=== PATIENT | male | born 1990 | race Caucasian/White ===

== ENCOUNTER 2016-08-04 05:23 | Emergency (ER) | payer OTHER, SELFPAY ==
[2016-08-04] MEDS ORDERED: NORCO, ANEXSIA 5/325MG TABLET (HYDROcodone/ACETAMINOPHEN) As Ordered ONE (08:09)
[2016-08-04] MEDS ORDERED: cefTRIAXone SOD 250 MG VIAL (J0696) As Ordered ONE (08:09)
--- NOTE | 2016-08-04 08:09 | REP ---
Clinical: Left-sided scrotal and testicular pain. Technique: Real time joyce scale and color Doppler evaluation of the scrotum and testicles using curved array and linear high frequency transducer. Findings: The left epididymal body and tail appears mildly enlarged, heterogeneous, and hyperemic consistent with acute epididymitis. Small associated left hydrocele is identified and likely reactive. The right epididymis and bilateral testicles are normal in contour, size, echogenicity, and vascularity. Incidental note is made of a 8 mm left epididymal head cyst. There is no evidence for testicular mass lesion, torsion, or orchitis. No inguinal hernias are identified. No varicoceles noted. Right testicle measures 5.2 x 3.1 x 3.2 cm. Left testicle measures 5.4 x 3.0 x 3.1 cm. Impression: Acute left epididymitis. Signed by Dusty Macario MD 08/04/2016 08:01 A
[2016-08-04] MEDS ORDERED: DOXYCYCLINE HYCLATE 100 MG TAB As Ordered ONE (08:10)
[2016-08-04] MEDS ORDERED: LIDOCAINE 1% MDV 20ML VIAL As Ordered ONE (08:10)
--- NOTE | 2016-08-04 08:42 | EDDOCDS ---
Nurse's Notes [facility] Name: Da Yu Age: 26 yrs Sex: Male : 1990 Arrival Date: 08/04/2016 Time: 05:23 Bed 9 Private MD: Diagnosis: Epididymitis-left Presentation: 08/04 05:27 Presenting complaint: Patient states: pain, swelling in left testicle for about a week. ko2 Suicide/Homicide risk assessment- the patient denies having any suicidal and/or homicidal ideations and does not present with any other emotional, behavioral or mental health complaints. Status: Patient is not a appliance service technician or dependent. Transition of care: patient was not received from another setting of care. 05:27 Acuity: ZULMA Level 3 ko2 05:27 Method Of Arrival: Walkin/Carried/Asstd ko2 05:32 Adult Sepsis Screening: The patient does not have new or worsening altered mentation. ko2 Patient's respiratory rate is less than 22. Systolic blood pressure is greater than 100. Patient has a qSOFA score of 0- Negative Sepsis Screen. Triage Assessment: 05:29 General: Appears in no apparent distress. Pain: Location: groin Pain currently is 5 out ko2 of 10 on a pain scale. HIV screening NA for this visit Offered previously. The patient is triaged at the bedside. See Assessment in Nurses Notes section of ED record. Neurological: Level of Consciousness is awake, alert. Respiratory: Airway is patent Respiratory effort is even, unlabored. 05:32 GI: Reports swelling and redness to left testicle. ko2 Historical: - Allergies: No known drug Allergies; - Home Meds: 1. none - PMHx: none; - PSHx: rt ankle surgery; - The history from nurses notes was reviewed: and I agree with what is documented. - Social history: Smoking status: Patient uses tobacco products, light tobacco smoker. No barriers to communication noted, The patient speaks fluent Faroese, Speaks appropriately for age. - Family history: Not pertinent. - : The pt / caregiver states he / she is not on anticoagulants. Home medication list is obtained from the patient. - Hospitalizations: : No recent hospitalization is reported. - Exposure Risk Screening:: None identified. - Immunization history:: All immunizations up-to-date. - Social history:: the patient is a non-smoker, the patient drinks alcohol, socially. Screenin:32 Screening information is obtained from the patient. Fall risk: No risks identified. ko2 Assistance ADL's: requires no assistance with activities of daily living. Abuse/DV Screen: The patient / caregiver reports he/she is: not in a situation that causes fear, pain or injury. Nutritional screening: No deficits noted. Advance Directives: Currently, there is no health care proxy. There is no active DNR order. There is no living will. There is no Power of Principal Systems Architect. home support is adequate. Assessment: 06:17 General: Appears in no apparent distress, Behavior is cooperative. Pain: Location: mgs groin Pain currently is 3 out of 10 on a pain scale. Neurological: Level of Consciousness is awake, alert, Oriented to person, place, time. Cardiovascular: Capillary refill < 3 seconds Heart tones S1 S2 present Pulses are 2+ in right radial artery and left radial artery. Respiratory: Airway is patent Respiratory effort is even, unlabored, Respiratory pattern is regular, symmetrical, Breath sounds are clear bilaterally. GI: Abdomen is flat, Bowel sounds present X 4 quads. Abd is soft and non tender X 4 quads. : Reports Swollen left testicle with dull pain. Derm: Skin is pink, warm & dry. 07:48 General: Appears in no apparent distress, comfortable, Behavior is cooperative. Pain: bcj Location: groin Pain currently is 0 out of 10 on a pain scale. :. Derm: Skin is pink, warm & dry. 08:36 General: Appears in no apparent distress, comfortable, Behavior is cooperative. Pain: bcj Location: groin Pain currently is 2 out of 10 on a pain scale. Derm: Skin is pink, warm & dry. Vital Signs: 05:30 BP 131 / 76; Pulse 62; Resp 16; Temp 99.4(TE); Pulse Ox 98% ; Weight 68.04 kg; Height 5 ko2 ft. 11 in. (180.34 cm); Pain 5/10; 06:18 BP 134 / 87; Pulse 51; Resp 18; Temp 97.1; Pulse Ox 99% ; Pain 4/10; kb5 08:36 BP 130 / 85; Pulse 80; Resp 16; Temp 98; Pain 2/10; bcj 05:30 Body Mass Index 20.92 (68.04 kg, 180.34 cm) ko2 Vitals: 05:30 Log In Time: August 04, 2016 at 05:23. ko2 ED Course: 05:25 Patient visited by Jaime Bang Reg. pm4 05:25 Patient moved to Waiting pm4 05:28 Triage Initiated ko2 06:11 Patient moved to 9 rw1 06:12 Nii Massey,RN is Primary Nurse. mgs 06:18 Patient visited by Richard Rivas PCA. kb5 06:20 Patient visited by Nii Massey,STEPHEN. mgs 06:[address] [facility] Payment Agreement was scanned into [employer] and attached to record. hs2 06:43 Patient moved to Ultrasound ssc 06:45 Patient name changed from Da\S\S\S\Aimee\S\ to Da\S\Mckoy\S\Aimee. EDMS 07:25 Boy Otto MD is Attending Physician. pc 07:43 Patient moved to 9 5 07:48 Patient visited by Boy Otto MD. pc 07:48 No apparent distress. Resting quietly. Waiting for radiology results. bcj 07:48 The patient / caregiver is instructed regarding the plan of care and ED course. Patient bcj has correct armband on for positive identification. Placed in gown. Bed in low position. Call light in reach. Side rails up X 1. Adult w/ patient. 07:50 Patient visited by Nikolay Mills RN. bcj 08:03 Saqib Mccullough is Referral Physician. pc 08:36 No IV's were initiated during this patient's visit. No procedures done that require bcj assistance. 08:41 Patient visited by Nikolay Mills RN. bcj Administered Medications: 08:17 Drug: cefTRIAXone 250 mg [ceftriaxone 250 mg solution for injection (250 mg)] Route: bcj IM; Site: right gluteus; 08:40 Follow up: Response: No Adverse Reaction bcj 08:17 Drug: Doxycycline 100 mg [doxycycline hyclate 100 mg tablet (1 tabs)] Route: PO; bcj 08:17 Drug: HYDROcodone-acetaminophen 1 tabs [hydrocodone 5 mg-acetaminophen 325 mg tablet (1 bcj tabs)] Route: PO; Order Results: There are currently no results for this order. Outcome: 08:03 Discharge ordered by Provider. pc 08:36 Discharge Assessment: patient administered narcotics - yes. Pt provided with safe bcj discharge. The following High Risk Discharge criteria are identified: None. Discharged to home ambulatory, with family. Condition: stable. Discharge instructions given to patient, Instructed on discharge instructions, follow up and referral plans. medication usage, Prescriptions given X 2. Ultrasound Study completed. Property :Personal belongings accompany Pt. 08:41 [facility] Signatures: Dispatcher [employer] EDMS Boy Otto MD MD pc Johnson, Bruce, RN RN Andi Sam Stacy sm5 Costa Pedro,COMMERCIAL PROJECT MANAGER COMMERCIAL PROJECT MANAGER rw1 Richard Rivas, PELLET PREPARATION OPERATOR PELLET PREPARATION OPERATOR kb5 Gisel Jimenez,RN RN ryan2 Nii Massey,RN RN s Kera Harris, Reg Reg hs2 Jaime Bang, Reg Reg pm4 SHELLEY
--- NOTE | 2016-08-04 08:42 | EDDOCDS ---
Physician Documentation [facility] Name: Da Yu Age: 26 yrs Sex: Male : 1990 Arrival Date: 08/04/2016 Time: 05:23 Bed 9 Private MD: Disposition: 08/04 07:59 Critical Care: Critical care not applicable. pc Disposition: 08/04/16 08:03 Discharged to Home/Self Care. Impression: Epididymitis - left. - Condition is Stable. - Discharge Instructions: Epididymitis. - Prescriptions for Warren 5- 325 mg Oral Tablet - take 1 tablet by ORAL route every 6 hours As needed MDD: 4 tabs; 20 tablet. Doxycycline Monohydrate 100 mg Oral Tablet - take 1 tablet by ORAL route every 12 hours for 10 days; 20 tablet. - Medication Reconciliation, Local Pharmacy Hours form. - Follow up: Saqib Mccullough; When: Call to arrange an appointment; Reason: Recheck today's complaints, To establish care. - Problem is new. - Symptoms have improved. HPI: 07:59 This 26 yrs old Male presents to ER via Walkin/Carried/Asstd with complaints pc of Groin Pain. 07:59 The history is obtained from the patient. He has had pain and swelling in his left pc testicle for 8 days without known trauma. He denies urinary symptoms, fevers or chills. The patient has not experienced similar symptoms in the past. The patient has not recently seen a physician. Historical: - Allergies: No known drug Allergies; - Home Meds: 1. none - PMHx: none; - PSHx: rt ankle surgery; - The history from nurses notes was reviewed: and I agree with what is documented. - Social history: Smoking status: Patient uses tobacco products, light tobacco smoker. No barriers to communication noted, The patient speaks fluent Welsh, Speaks appropriately for age. - Family history: Not pertinent. - : The pt / caregiver states he / she is not on anticoagulants. Home medication list is obtained from the patient. - Hospitalizations: : No recent hospitalization is reported. - Exposure Risk Screening:: None identified. - Immunization history:: All immunizations up-to-date. - Social history:: the patient is a non-smoker, the patient drinks alcohol, socially. ROS: 07:59 All systems are negative except as listed. pc Exam: 07:59 General Appearance: no acute distress, alert. pc 07:59 : Male external genitalia: swelling, tenderness, of the epididymis area, left. 07:59 Skin: skin color is normal, warm, dry. Vital Signs: 05:30 BP 131 / 76; Pulse 62; Resp 16; Temp 99.4(TE); Pulse Ox 98% ; Weight 68.04 kg / 150 ko2 lbs; Height 5 ft. 11 in. (180.34 cm); Pain 5/10; 06:18 BP 134 / 87; Pulse 51; Resp 18; Temp 97.1; Pulse Ox 99% ; Pain 4/10; kb5 08:36 BP 130 / 85; Pulse 80; Resp 16; Temp 98; Pain 2/10; bcj 05:30 Body Mass Index 20.92 (68.04 kg, 180.34 cm) ko2 MDM: 06:24 Scrotal, US Ordered. EDMS 06:42 [facility] Payment Agreement was scanned into [employer] and attached to record. hs2 07:09 DUPLEX SCAN LIMITED (DOPPLER) Ordered. EDMS 07:09 Pelvis, limited US Ordered. EDMS 07:59 cefTRIAXone 250 mg IM once ordered. pc 07:59 Doxycycline 100 mg PO once ordered. pc 07:59 HYDROcodone-acetaminophen 5 mg-325 mg 1 tabs PO once ordered. pc 07:59 Differential Diagnosis: left epididymitis ?cyst. Plan: US, meds. Data reviewed: old medical records, vital signs, nurses notes, all radiology studies and available results. Test interpretation: Ultrasound - interpreted by Radiologist, Scrotal Left Epididymal cyst and epididymitis. The patient has been re-examined and re-evaluated. The patient's symptoms have mildly improved after treatment. Disposition: The historical points, examination findings, and any diagnostic results supporting the provided diagnosis, were discussed with the patient or legal guardian. The need for outpatient follow up with the provider listed on their discharge instructions was discussed. They were encouraged to return to [facility], or the nearest ED, if symptoms worsen/persist, or for any other questions/concerns. 08:32 Financial registration complete. jp5 Administered Medications: 08:17 Drug: cefTRIAXone 250 mg [ceftriaxone 250 mg solution for injection (250 mg)] Route: bcj IM; Site: right gluteus; 08:40 Follow up: Response: No Adverse Reaction [facility] 08:17 Drug: Doxycycline 100 mg [doxycycline hyclate 100 mg tablet (1 tabs)] Route: PO; [facility] 08:17 Drug: HYDROcodone-acetaminophen 1 tabs [hydrocodone 5 mg-acetaminophen 325 mg tablet (1 bcj tabs)] Route: PO; Signatures: Dispatcher [employer] Boy Caruso MD MD pc Johnson, Bruce, RN RN bcj Ogden, Kari, RN RN Angela Sibley 5 Kera Harris, Reg Reg hs2 The chart was reviewed and I authenticate all verbal orders and agree with the evaluation and treatment provided.Attachments: 06:42 [facility] Payment Agreement hs2 MTDD
--- NOTE | 2016-08-06 09:42 | EDDOCDS ---
Physician Documentation [facility] Name: Da Yu Age: 26 yrs Sex: Male : 1990 Arrival Date: 08/04/2016 Time: 05:23 Bed 9 Private MD: Disposition: 08/04 07:59 Critical Care: Critical care not applicable. pc Disposition: 08/04/16 08:03 Discharged to Home/Self Care. Impression: Epididymitis - left. - Condition is Stable. - Discharge Instructions: Epididymitis. - Prescriptions for Portal 5- 325 mg Oral Tablet - take 1 tablet by ORAL route every 6 hours As needed MDD: 4 tabs; 20 tablet. Doxycycline Monohydrate 100 mg Oral Tablet - take 1 tablet by ORAL route every 12 hours for 10 days; 20 tablet. - Medication Reconciliation, Local Pharmacy Hours form. - Follow up: Saqib Mccullough; When: Call to arrange an appointment; Reason: Recheck today's complaints, To establish care. - Problem is new. - Symptoms have improved. HPI: 07:59 This 26 yrs old Male presents to ER via Walkin/Carried/Asstd with complaints pc of Groin Pain. 07:59 The history is obtained from the patient. He has had pain and swelling in his left pc testicle for 8 days without known trauma. He denies urinary symptoms, fevers or chills. The patient has not experienced similar symptoms in the past. The patient has not recently seen a physician. Historical: - Allergies: No known drug Allergies; - Home Meds: 1. none - PMHx: none; - PSHx: rt ankle surgery; - The history from nurses notes was reviewed: and I agree with what is documented. - Social history: Smoking status: Patient uses tobacco products, light tobacco smoker. No barriers to communication noted, The patient speaks fluent Ukrainian, Speaks appropriately for age. - Family history: Not pertinent. - : The pt / caregiver states he / she is not on anticoagulants. Home medication list is obtained from the patient. - Hospitalizations: : No recent hospitalization is reported. - Exposure Risk Screening:: None identified. - Immunization history:: All immunizations up-to-date. - Social history:: the patient is a non-smoker, the patient drinks alcohol, socially. ROS: 07:59 All systems are negative except as listed. pc Exam: 07:59 General Appearance: no acute distress, alert. pc 07:59 : Male external genitalia: swelling, tenderness, of the epididymis area, left. 07:59 Skin: skin color is normal, warm, dry. Vital Signs: 05:30 BP 131 / 76; Pulse 62; Resp 16; Temp 99.4(TE); Pulse Ox 98% ; Weight 68.04 kg / 150 ko2 lbs; Height 5 ft. 11 in. (180.34 cm); Pain 5/10; 06:18 BP 134 / 87; Pulse 51; Resp 18; Temp 97.1; Pulse Ox 99% ; Pain 4/10; kb5 08:36 BP 130 / 85; Pulse 80; Resp 16; Temp 98; Pain 2/10; bcj 05:30 Body Mass Index 20.92 (68.04 kg, 180.34 cm) ko2 MDM: 06:24 Scrotal, US Ordered. EDMS 06:42 [facility] [place] Payment Agreement was scanned into [email or web address] and attached to record. hs2 07:09 DUPLEX SCAN LIMITED (DOPPLER) Ordered. EDMS 07:09 Pelvis, limited US Ordered. EDMS 07:59 cefTRIAXone 250 mg IM once ordered. pc 07:59 Doxycycline 100 mg PO once ordered. pc 07:59 HYDROcodone-acetaminophen 5 mg-325 mg 1 tabs PO once ordered. pc 07:59 Differential Diagnosis: left epididymitis ?cyst. Plan: US, meds. Data reviewed: old medical records, vital signs, nurses notes, all radiology studies and available results. Test interpretation: Ultrasound - interpreted by Radiologist, Scrotal Left Epididymal cyst and epididymitis. The patient has been re-examined and re-evaluated. The patient's symptoms have mildly improved after treatment. Disposition: The historical points, examination findings, and any diagnostic results supporting the provided diagnosis, were discussed with the patient or legal guardian. The need for outpatient follow up with the provider listed on their discharge instructions was discussed. They were encouraged to return to [facility], or the nearest ED, if symptoms worsen/persist, or for any other questions/concerns. 08:32 Financial registration complete. jp5 Administered Medications: 08:17 Drug: cefTRIAXone 250 mg [ceftriaxone 250 mg solution for injection (250 mg)] Route: bcj IM; Site: right gluteus; 08:40 Follow up: Response: No Adverse Reaction [facility] 08:17 Drug: Doxycycline 100 mg [doxycycline hyclate 100 mg tablet (1 tabs)] Route: PO; [facility] 08:17 Drug: HYDROcodone-acetaminophen 1 tabs [hydrocodone 5 mg-acetaminophen 325 mg tablet (1 bcj tabs)] Route: PO; Signatures: Dispatcher [employer] Boy Caruso MD MD pc Johnson, Bruce, RN RN bcj Ogden, Kari, RN RN Angela Sibley 5 Kera Harris, Reg Reg hs2 The chart was reviewed and I authenticate all verbal orders and agree with the evaluation and treatment provided.Attachments: 06:42 [facility] Payment Agreement hs2 Chart Complete MTDD
--- NOTE | 2016-08-06 09:42 | EDDOCDS ---
Nurse's Notes [facility] Name: Da Yu Age: 26 yrs Sex: Male : 1990 Arrival Date: 08/04/2016 Time: 05:23 Bed 9 Private MD: Diagnosis: Epididymitis-left Presentation: 08/04 05:27 Presenting complaint: Patient states: pain, swelling in left testicle for about a week. ko2 Suicide/Homicide risk assessment- the patient denies having any suicidal and/or homicidal ideations and does not present with any other emotional, behavioral or mental health complaints. Status: Patient is not a social services specialist or dependent. Transition of care: patient was not received from another setting of care. 05:27 Acuity: ZULMA Level 3 ko2 05:27 Method Of Arrival: Walkin/Carried/Asstd ko2 05:32 Adult Sepsis Screening: The patient does not have new or worsening altered mentation. ko2 Patient's respiratory rate is less than 22. Systolic blood pressure is greater than 100. Patient has a qSOFA score of 0- Negative Sepsis Screen. Triage Assessment: 05:29 General: Appears in no apparent distress. Pain: Location: groin Pain currently is 5 out ko2 of 10 on a pain scale. HIV screening NA for this visit Offered previously. The patient is triaged at the bedside. See Assessment in Nurses Notes section of ED record. Neurological: Level of Consciousness is awake, alert. Respiratory: Airway is patent Respiratory effort is even, unlabored. 05:32 GI: Reports swelling and redness to left testicle. ko2 Historical: - Allergies: No known drug Allergies; - Home Meds: 1. none - PMHx: none; - PSHx: rt ankle surgery; - The history from nurses notes was reviewed: and I agree with what is documented. - Social history: Smoking status: Patient uses tobacco products, light tobacco smoker. No barriers to communication noted, The patient speaks fluent Eritrean, Speaks appropriately for age. - Family history: Not pertinent. - : The pt / caregiver states he / she is not on anticoagulants. Home medication list is obtained from the patient. - Hospitalizations: : No recent hospitalization is reported. - Exposure Risk Screening:: None identified. - Immunization history:: All immunizations up-to-date. - Social history:: the patient is a non-smoker, the patient drinks alcohol, socially. Screenin:32 Screening information is obtained from the patient. Fall risk: No risks identified. ko2 Assistance ADL's: requires no assistance with activities of daily living. Abuse/DV Screen: The patient / caregiver reports he/she is: not in a situation that causes fear, pain or injury. Nutritional screening: No deficits noted. Advance Directives: Currently, there is no health care proxy. There is no active DNR order. There is no living will. There is no Power of Residential Subcontractor. home support is adequate. Assessment: 06:17 General: Appears in no apparent distress, Behavior is cooperative. Pain: Location: mgs groin Pain currently is 3 out of 10 on a pain scale. Neurological: Level of Consciousness is awake, alert, Oriented to person, place, time. Cardiovascular: Capillary refill < 3 seconds Heart tones S1 S2 present Pulses are 2+ in right radial artery and left radial artery. Respiratory: Airway is patent Respiratory effort is even, unlabored, Respiratory pattern is regular, symmetrical, Breath sounds are clear bilaterally. GI: Abdomen is flat, Bowel sounds present X 4 quads. Abd is soft and non tender X 4 quads. : Reports Swollen left testicle with dull pain. Derm: Skin is pink, warm & dry. 07:48 General: Appears in no apparent distress, comfortable, Behavior is cooperative. Pain: bcj Location: groin Pain currently is 0 out of 10 on a pain scale. :. Derm: Skin is pink, warm & dry. 08:36 General: Appears in no apparent distress, comfortable, Behavior is cooperative. Pain: bcj Location: groin Pain currently is 2 out of 10 on a pain scale. Derm: Skin is pink, warm & dry. Vital Signs: 05:30 BP 131 / 76; Pulse 62; Resp 16; Temp 99.4(TE); Pulse Ox 98% ; Weight 68.04 kg; Height 5 ko2 ft. 11 in. (180.34 cm); Pain 5/10; 06:18 BP 134 / 87; Pulse 51; Resp 18; Temp 97.1; Pulse Ox 99% ; Pain 4/10; kb5 08:36 BP 130 / 85; Pulse 80; Resp 16; Temp 98; Pain 2/10; bcj 05:30 Body Mass Index 20.92 (68.04 kg, 180.34 cm) ko2 Vitals: 05:30 Log In Time: August 04, 2016 at 05:23. ko2 ED Course: 05:25 Patient visited by Jaime Bang Reg. pm4 05:25 Patient moved to Waiting pm4 05:28 Triage Initiated ko2 06:11 Patient moved to 9 rw1 06:12 Nii Massey,RN is Primary Nurse. mgs 06:18 Patient visited by Richard Rivas PCA. kb5 06:20 Patient visited by Nii Massey,STEPHEN. mgs 06:42 [facility] [place] was scanned into [employer] and attached to record. hs2 06:43 Patient moved to Ultrasound ssc 06:45 Patient name changed from Da\S\S\S\Aimee\S\ to Da\S\Mckoy\S\Aimee. EDMS 07:25 Boy Otto MD is Attending Physician. pc 07:43 Patient moved to 9 5 07:48 Patient visited by Boy Otto MD. pc 07:48 No apparent distress. Resting quietly. Waiting for radiology results. bcj 07:48 The patient / caregiver is instructed regarding the plan of care and ED course. Patient bcj has correct armband on for positive identification. Placed in gown. Bed in low position. Call light in reach. Side rails up X 1. Adult w/ patient. 07:50 Patient visited by Nikolay Mills RN. bcj 08:03 Saqib Mccullough is Referral Physician. pc 08:36 No IV's were initiated during this patient's visit. No procedures done that require bcj assistance. 08:41 Patient visited by Nikolay Mills RN. bcj 08:43 Scrotal, US Returned. EDMS Administered Medications: 08:17 Drug: cefTRIAXone 250 mg [ceftriaxone 250 mg solution for injection (250 mg)] Route: bcj IM; Site: right gluteus; 08:40 Follow up: Response: No Adverse Reaction bcj 08:17 Drug: Doxycycline 100 mg [doxycycline hyclate 100 mg tablet (1 tabs)] Route: PO; bcj 08:17 Drug: HYDROcodone-acetaminophen 1 tabs [hydrocodone 5 mg-acetaminophen 325 mg tablet (1 bcj tabs)] Route: PO; Order Results: Radiology Order: Scrotal, US Test: Scrotal, US REASON FOR EXAMINATION: left testicular swelling; Clinical: Left-sided scrotal and testicular pain.; ; Technique: Real time joyce scale and color Doppler evaluation of the scrotum and; testicles using curved array and linear high frequency transducer.; ; Findings:; The left epididymal body and tail appears mildly enlarged, heterogeneous, and; hyperemic consistent with acute epididymitis. Small associated left hydrocele is; identified and likely reactive. The right epididymis and bilateral testicles are; normal in contour, size, echogenicity, and vascularity. Incidental note is made; of a 8 mm left epididymal head cyst. There is no evidence for testicular mass; lesion, torsion, or orchitis. No inguinal hernias are identified. No; varicoceles noted.; ; Right testicle measures 5.2 x 3.1 x 3.2 cm.; Left testicle measures 5.4 x 3.0 x 3.1 cm.; ; Impression:; Acute left epididymitis.; ; ; ; Signed by; Dusty Macario MD 08/04/2016 08:01 A; Outcome: 08:03 Discharge ordered by Provider. 08:36 Discharge Assessment: patient administered narcotics - yes. Pt provided with safe bcj discharge. The following High Risk Discharge criteria are identified: None. Discharged to home ambulatory, with family. Condition: stable. Discharge instructions given to patient, Instructed on discharge instructions, follow up and referral plans. medication usage, Prescriptions given X 2. Ultrasound Study completed. Property :Personal belongings accompany Pt. 08:41 Patient left the ED. j Signatures: Dispatcher [employer] Boy Caruso MD MD pc Johnson, Bruce, RN RN Andi Sam Stacy sm5 Costa Pedro,ZEKE SERVICE STATION HELPER rw1 Richard Rivas, WATER PUMP OPERATOR WATER PUMP OPERATOR kb5 Gisel Jimenez RN RN ko2 Nii Massey,STEPHEN RN mgs Kera Harris, Reg Reg hs2 Jaime Bang, Reg Reg pm4 Chart Complete MTDD
--- NOTE | 2016-08-06 09:42 | EDDOCDS ---
Physician Documentation [facility] Name: Da Yu Age: 26 yrs Sex: Male : 1990 Arrival Date: 08/04/2016 Time: 05:23 Bed 9 Private MD: Disposition: 08/04 07:59 Critical Care: Critical care not applicable. pc Disposition: 08/04/16 08:03 Discharged to Home/Self Care. Impression: Epididymitis - left. - Condition is Stable. - Discharge Instructions: Epididymitis. - Prescriptions for Nolan 5- 325 mg Oral Tablet - take 1 tablet by ORAL route every 6 hours As needed MDD: 4 tabs; 20 tablet. Doxycycline Monohydrate 100 mg Oral Tablet - take 1 tablet by ORAL route every 12 hours for 10 days; 20 tablet. - Medication Reconciliation, Local Pharmacy Hours form. - Follow up: Saqib Mccullough; When: Call to arrange an appointment; Reason: Recheck today's complaints, To establish care. - Problem is new. - Symptoms have improved. HPI: 07:59 This 26 yrs old Male presents to ER via Walkin/Carried/Asstd with complaints pc of Groin Pain. 07:59 The history is obtained from the patient. He has had pain and swelling in his left pc testicle for 8 days without known trauma. He denies urinary symptoms, fevers or chills. The patient has not experienced similar symptoms in the past. The patient has not recently seen a physician. Historical: - Allergies: No known drug Allergies; - Home Meds: 1. none - PMHx: none; - PSHx: rt ankle surgery; - The history from nurses notes was reviewed: and I agree with what is documented. - Social history: Smoking status: Patient uses tobacco products, light tobacco smoker. No barriers to communication noted, The patient speaks fluent Belarusian, Speaks appropriately for age. - Family history: Not pertinent. - : The pt / caregiver states he / she is not on anticoagulants. Home medication list is obtained from the patient. - Hospitalizations: : No recent hospitalization is reported. - Exposure Risk Screening:: None identified. - Immunization history:: All immunizations up-to-date. - Social history:: the patient is a non-smoker, the patient drinks alcohol, socially. ROS: 07:59 All systems are negative except as listed. pc Exam: 07:59 General Appearance: no acute distress, alert. pc 07:59 : Male external genitalia: swelling, tenderness, of the epididymis area, left. 07:59 Skin: skin color is normal, warm, dry. Vital Signs: 05:30 BP 131 / 76; Pulse 62; Resp 16; Temp 99.4(TE); Pulse Ox 98% ; Weight 68.04 kg / 150 ko2 lbs; Height 5 ft. 11 in. (180.34 cm); Pain 5/10; 06:18 BP 134 / 87; Pulse 51; Resp 18; Temp 97.1; Pulse Ox 99% ; Pain 4/10; kb5 08:36 BP 130 / 85; Pulse 80; Resp 16; Temp 98; Pain 2/10; bcj 05:30 Body Mass Index 20.92 (68.04 kg, 180.34 cm) ko2 MDM: 06:24 Scrotal, US Ordered. EDMS 06:42 [facility] [place] Payment Agreement was scanned into [employer] and attached to record. hs2 07:09 DUPLEX SCAN LIMITED (DOPPLER) Ordered. EDMS 07:09 Pelvis, limited US Ordered. EDMS 07:59 cefTRIAXone 250 mg IM once ordered. pc 07:59 Doxycycline 100 mg PO once ordered. pc 07:59 HYDROcodone-acetaminophen 5 mg-325 mg 1 tabs PO once ordered. pc 07:59 Differential Diagnosis: left epididymitis ?cyst. Plan: US, meds. Data reviewed: old medical records, vital signs, nurses notes, all radiology studies and available results. Test interpretation: Ultrasound - interpreted by Radiologist, Scrotal Left Epididymal cyst and epididymitis. The patient has been re-examined and re-evaluated. The patient's symptoms have mildly improved after treatment. Disposition: The historical points, examination findings, and any diagnostic results supporting the provided diagnosis, were discussed with the patient or legal guardian. The need for outpatient follow up with the provider listed on their discharge instructions was discussed. They were encouraged to return to [facility], or the nearest ED, if symptoms worsen/persist, or for any other questions/concerns. 08:32 Financial registration complete. jp5 Administered Medications: 08:17 Drug: cefTRIAXone 250 mg [ceftriaxone 250 mg solution for injection (250 mg)] Route: bcj IM; Site: right gluteus; 08:40 Follow up: Response: No Adverse Reaction [facility] 08:17 Drug: Doxycycline 100 mg [doxycycline hyclate 100 mg tablet (1 tabs)] Route: PO; [facility] 08:17 Drug: HYDROcodone-acetaminophen 1 tabs [hydrocodone 5 mg-acetaminophen 325 mg tablet (1 bcj tabs)] Route: PO; Signatures: Dispatcher [employer] Boy Caruso MD MD pc Johnson, Bruce, RN RN bcj Ogden, Kari, RN RN Angela Sibley 5 Kera Harris, Reg Reg hs2 The chart was reviewed and I authenticate all verbal orders and agree with the evaluation and treatment provided.Attachments: 06:42 [facility] Payment Agreement hs2 Chart Complete MTDD
== END 2016-08-04 08:41 | disposition home or self-care (01) ==
LOC: M ED 05:23
DX: N45.1 Epididymitis (principal)
CPT/HCPCS: 76857; 76870; 93976; 96372; 99284; J0696